=== PATIENT | male | born 1975 | race Caucasian/White ===

== ENCOUNTER 2016-07-23 23:11 | Emergency (ER) | payer OTHER ==
[~2016-07-23] VITALS: Ht 182.9 cm; Wt 81.6 kg
--- NOTE | 2016-07-23 23:37 | NUR ---
BIB [employer], PT STATES HAVING "SPINAL INFECTION" PT AOX3 RR EVEN AND UNLABORED. NO SOB NOTED. NAD NOTED. NO NVD AT THIS TIME. PT NOT DIAPHORETIC. PT WAITING FOR MD [place]. [employer] AT BEDSIDE
--- NOTE | 2016-07-24 00:32 | NUR ---
CALLED [facility] . LEFT MESSAGE
--- NOTE | 2016-07-24 00:52 | NUR ---
FAXED MEDICAL RELEASE FORMS TO FABY @[facility]. FAX:
--- NOTE | 2016-07-24 01:00 | NUR ---
LAB AT BEDSIDE FOR BLOOD DRAW.
[2016-07-24 01:10] LABS: BASOPHILS % (AUTO) 0.6 % (0.0-2.0); EOSINOPHILS # (AUTO) 0.1 /CMM (0.0-0.7); EOSINOPHILS % (AUTO) 1.1 % (0.0-6.0); HEMATOCRIT 39 % (39-51); LYMPHOCYTES # (AUTO) 1.8 /CMM (0.8-4.8); LYMPHOCYTES % (AUTO) 28.1 % (20.0-44.0); MEAN CORPUSCULAR HEMOGLOBIN 27 PG (26.0-33.0); MEAN CORPUSCULAR HGB CONC 33 g/dl (31.0-36.0); MEAN CORPUSCULAR VOLUME 82 fL (80-96); MONOCYTES # (AUTO) 0.3 /CMM (0.1-1.30); NEUTROPHILS # (AUTO) 4.2 /CMM (1.8-8.9); NEUTROPHILS % (AUTO) 65.2 % (43.0-81.0); PLATELET COUNT (AUTO) 157 /CMM (150-450); RDW COEFFICIENT OF VARIATION 14.2 (11.5-15.0); RED BLOOD CELL COUNT(AUTO) 4.82 MIL/uL (4.5-6.0); WHITE BLOOD COUNT (AUTO) 6.5 K/uL (4.3-11.0)
[2016-07-24 01:21] LABS: CALCIUM, SERUM 9.5 mg/dL (8.5-10.1); CREATININE 1.1 mg/dL (0.6-1.3); POTASSIUM 3.9 mmol/L (3.5-5.1)
[2016-07-24] MEDS ORDERED: CT SWABBABLE VALVE TRANS SET 1 EA INFUS.SET MC ONE (01:26)
[2016-07-24] MEDS ORDERED: IV NS 0.9% 250 ML IV ONE (01:26)
[2016-07-24] MEDS ORDERED: IOHEXOL-300 100 ML VIAL IV ONE (01:26)
--- NOTE | 2016-07-24 01:27 | NUR ---
SPOKE TO FABY AT [facility] WHOM STATES SHE WILL FAX INFORMATION
--- NOTE | 2016-07-24 01:32 | NUR ---
PT TO CT
--- NOTE | 2016-07-24 02:29 | NUR ---
CALLED LAB FOR BLOOD CX.
[2016-07-24] MEDS ORDERED: CEFTRIAXONE 1GM BAG (ER ONLY) 1 GM/50 ML PIGGYBACK IV ONE (02:30)
[2016-07-24] MEDS ORDERED: VANCOMYCIN 1 GM in IV D5W 250 ML IV ONE (02:30)
--- NOTE | 2016-07-24 02:30 | NUR ---
318.1 [facility] bed
--- NOTE | 2016-07-24 02:38 | NUR ---
md patel is speaking with md fernandez
[2016-07-24] MEDS ORDERED: CEFTRIAXONE 1 G VIAL ONE (02:45)
[2016-07-24] MEDS ORDERED: IV SET PRIMARY PUMP SET 1 EA INFUS.SET MC ONE ×3 (02:45→02:53)
[2016-07-24] MEDS ORDERED: IV D5W 100 ML IV ONE (02:48)
[2016-07-24] MEDS ORDERED: VANCOMYCIN 1 GM VIAL ONE (02:53)
[2016-07-24] MEDS ORDERED: IV D5W 250 ML IV ONE (02:53)
--- NOTE | 2016-07-24 02:55 | NUR ---
PT TRANSFERED TO ER BED 7. PT AWARE.
--- NOTE | 2016-07-24 03:02 | NUR ---
CALLING [facility]. NO NEUROSURGEON CREATIVE SERVICES INTERN.
--- NOTE | 2016-07-24 03:02 | NUR ---
LAB AT BEDSIDE FOR BLOOD CX DRAW.
--- NOTE | 2016-07-24 03:07 | NUR ---
CALLED [facility] AND WAS TOLD DR. WATTS, NEUROSURGEON WAS WHO THEY USE. CALLED [facility] AND THEY DO NOT HAVE A DR. WATTS.
--- NOTE | 2016-07-24 03:12 | NUR ---
DR. PEPPER SPEAKING TO [facility] [place]SF[place].
[2016-07-24 03:18] LABS: INR 0.99 (0.87-1.13); PROTHROMBIN TIME 10.6 SECS (9.5-12.7)
--- NOTE | 2016-07-24 03:18 | NUR ---
CALLED [facility]SFER LINE ([phone]); NO ANSWER.
--- NOTE | 2016-07-24 03:20 | NUR ---
jasson burton called, faxed ct and lab work to [phone]
--- NOTE | 2016-07-24 03:33 | NUR ---
CALLED [facility] ([phone]) AND SPOKE WITH BOUBACAR REGARDING TRANSFER FOR HIGHER LEVEL OF CARE. SHE PROVIDED NUMBER FOR TRANSFER LINE ([phone]). CALLED TRANSFER LINE; CALL TRANSFERED TO DR. PEPPER.
--- NOTE | 2016-07-24 03:36 | NUR ---
CALLED DR. WAYLON MCCAIN, NEUROSURGEON, [facility]. UNABLE TO REACH DR. MCCAIN
--- NOTE | 2016-07-24 03:39 | NUR ---
faxed face sheet and ct results to [facility] case preparer and liner; [phone] callback
--- NOTE | 2016-07-24 03:44 | NUR ---
PT ACCEPTED FOR HIGHER LEVEL CARE AT [facility], ER-TO-ER TRANSFER. ACCEPTED BY KEILY LANDON. [phone] FOR RN REPORT. ASK FOR TRAWL NET MAKER.
--- NOTE | 2016-07-24 03:50 | NUR ---
eta for med reponse ALS transport 45 min
--- NOTE | 2016-07-24 03:57 | NUR ---
REPORT GIVEN TO CHARGE NURSE KATHIE FROM [facility] FOR HIGHER LEVEL OF CARE TRANSFER. [phone] FOR
[2016-07-24 04:30] VITALS: BP 108/75
--- NOTE | 2016-07-24 04:33 | NUR ---
INFORMED CN KATHIE FROM [facility] ER, HALF OF VANCOMYCIN 1GM IVBP STOPPED D/T TRANSPORT UNABLE TO TRANSFER PT WITH MEDICATION.
--- NOTE | 2016-07-24 04:39 | NUR ---
REPORT GIVEN TO [facility]ON[facility] EMT FOR [facility] AND TOOK OVER CARE, PT TRANSFERED TO [facility] FOR HIGHER LEVEL OF CARE. PT AOX4, VSS, IV ON RIGHT UPPER ARM INTACT AND PATENT. NO S/S INFECTION OR INFILTRATION NOTED. PT WITH ALL PERSONAL BELONGINGS. PT TRANSFERED VIA GURNEY.
== END 2016-07-24 04:49 ==
LOC: ER 23:15
DX: M86.8X8 Other osteomyelitis, other site (principal); G06.2 Extradural and subdural abscess, unspecified
CPT/HCPCS: 36415; 72129-TC; 80048-TC; 83605-TC; 85025-TC; 85730-TC; 87040-TC; A4606; J0696; J3370; J7050; J7060; Q9967; Z7610